=== PATIENT | female | born 1960 | race Caucasian/White ===

== ENCOUNTER 2018-01-10 09:15 | Day surgery (SDC) | payer BC, OTHER ==
[~2018-01-10 09:15] MED LIST: BUPIVACAINE HCL 0.75% INJ/PF (7.5 MG/1 ML) 10 ML SDV OD PRN; CHONDR SU A NA/HYALUR INTRAOC KIT (SURGICARE) ONE; EPINEPHRINE INJ/PF 1 MG/1 ML AMPULE ONE; KETOROLAC TROMETHAMINE 0.45% 4 DROP/0.4 ML DROPERETTE OD PRN; LIDOCAINE 1% INJ-PF (10 MG/ML) 30 ML SDV ONE; LIDOCAINE 4% INJ/PF (40 MG/ML) 5 ML AMPUL OD PRN
[2018-01-10] MEDS: TROPICAMIDE 1% OPH SOLN 3 ML OD PRN ×3 (09:50→10:05)
[2018-01-10] MEDS: CYCLOPENTOLATE 0.2%/PHENYLEPHRINE 1% OPH SOLN 2 ML OD PRN ×3 (09:50→10:05)
[2018-01-10] MEDS: BESIFLOXACIN HCL 0.6% OPH SUSP 5 ML BOTTLE OD PRN ×3 (09:51→10:47)
[2018-01-10] MEDS: TETRACAINE HCL 0.5% OPH SOLN 0.6 ML DROPERETTE OD PRN ×2 (09:52→10:06)
[2018-01-10] MEDS ORDERED: MIDAZOLAM 2 MG/2 ML INJ ONE (10:05)
[2018-01-10] MEDS ORDERED: FENTANYL CITRATE INJ/PF 100 MCG/2 ML AMPUL ONE (10:06)
[2018-01-10] MEDS ORDERED: TRYPAN BLUE 0.06 % OPH SOLN 0.5 ML DISP.SYRIN ONE (10:10)
[2018-01-10] MEDS ORDERED: KETOROLAC TROMETHAMINE 0.45% 4 DROP/0.4 ML DROPERETTE OD ONE (11:23)
--- NOTE | 2018-01-10 11:30 | [facility] DISCHARGE SUMMARY E ---
[facility] Discharge Summary NAME: EUGENIA LI AGE: 57Y ADMITTED: 01/10/2018 DISCHARGED: 01/10/2018 HOSPITAL COURSE: The patient is a 57-year-old lady who underwent uneventful complex cataract extraction with intraocular lens implant right eye on 01/10/2018. She will be discharged to home. She is instructed to resume preoperative medications, take Tylenol as needed for discomfort, to keep her eye shielded, to use Besivance, Durezol, and Ilevro at 3 p.m. and 8 p.m., and to follow up in my office in 1 day. DICTATING PHYSICIAN: NELDA CLEVELAND M.D. [id number] PHY#: [id number] ID: [id number] JOB#: [id number] ACCT: [id number] cc:NELDA CLEVELAND M.D. >
--- NOTE | 2018-01-10 11:31 | [facility] OPERATIVE REPORT E ---
[facility] Operative Report NAME: EUGENIA LI AGE: 57Y DATE OF SURGERY: 01/10/2018 ROOM: PREOPERATIVE DIAGNOSIS: Mature cataract, right eye. POSTOPERATIVE DIAGNOSIS: Mature cataract, right eye. PROCEDURE PERFORMED: Complex cataract extraction with intraocular lens implant, right eye. SURGEON: NELDA CLEVELAND M.D. ANESTHESIA: Topical with MAC. INDICATIONS FOR SURGERY: Poor depth perception. Inability to see faces. Best corrected visual acuity hand motion. PROCEDURE: The patient was brought to the Operating Room and placed on the operative table. Following tetracaine drops, topical anesthesia was administered. This consisted of instrument wipe pledgets soaked in a solution of 4% Xylocaine mixed with 0.75% Marcaine in a 1:2 ratio. A 2 x 1 cm pledget was placed in the superior fornix. A 1 x 1 cm pledget was placed in the inferior fornix. The eye was patched shut for 5 minutes. The patch was removed. The eye was sterilely prepped and draped in the usual manner. Lid speculum was placed in the eye. The pledgets were removed. 4-0 black silk sutures were placed around the superior and the inferior rectus muscles to be used as traction. A conjunctival peritomy was made at the 10 o'clock position. Hemostasis was obtained with bipolar cautery. A posterior limbal groove was created using a crescent knife and dissected anteriorly towards the cornea. A sharp point blade was used to create a paracentesis site at the 2 o'clock position. A 2.4 mm keratome was used to enter the anterior chamber through the groove. Following the incision, a syringe with air was injected through the side port incision and aqueous was exchanged with air. Trypan blue dye was injected inferior to the air bubble. Viscoelastic was injected into the anterior chamber. An anterior capsulotomy was performed using Utrata forceps in a capsulorrhexis fashion. On making the capsulotomy, after the lens was punctured, the liquified cortex was aspirated with a syringe. Hydrodissection was performed. Phacoemulsification was performed in [id number] technique. A total of 13.96 CDE phaco time was used. Following this, the I/A unit was used to remove residual cortex. Viscoelastic was injected into the capsular bag. Intraocular lens model SN60WF, 20.5 diopters, serial number [id number] was placed in the capsular bag. The I/A unit was used to remove residual viscoelastic. The wound was seen to be watertight under high and low pressure, and no sutures were placed. The intraocular lens was well centered. The pressure was adjusted in the eye to normal pressure. The 4-0 black silk sutures and lid speculum were removed. The eye was shielded after Besivance drops were placed. The patient tolerated the procedure well and was sent to the Recovery Room in good condition. DICTATING PHYSICIAN: NELDA CLEVELAND M.D. [id number] PHY#: [id number] ID: [id number] JOB#: [id number] ACCT: [id number] cc:NELDA CLEVELAND M.D. > MTDD
== END 2018-01-10 11:42 | disposition home or self-care (01) ==
LOC: SC 09:15
PROVIDERS: ATTEND Ophthalmology
DX: H25.89 Other age-related cataract (principal); Z96.1 Presence of intraocular lens; F17.210 Nicotine dependence, cigarettes, uncomplicated; K21.9 Gastro-esophageal reflux disease without esophagitis; Z79.899 Other long term (current) drug therapy
CPT/HCPCS: 66982; V2632; J2250; J3490 ×5; J0171; J3010